=== PATIENT | female | born 2000 | race Caucasian/White ===

== ENCOUNTER 2025-06-25 20:32 | Emergency (ER) | payer MEDICAID ==
[~2025-06-25] VITALS: Ht 162.6 cm; Wt 98.0 kg
[2025-06-25 20:36] VITALS: O2SAT 99
[2025-06-25] MEDS: ONDANSETRON HCL 4MG/2ML INJ IV ONE (21:45)
[2025-06-25] MEDS: LORAZEPAM 2MG/ML UD SYRINGE IV SCH (21:45)
[2025-06-25] MEDS: ACETAMINOPHEN 500MG TABLET PO ONE (21:46)
[2025-06-25] MEDS: SODIUM CHLORIDE 0.9% 1,000 ML IV ONE (21:46)
[2025-06-25 21:47] LABS: BASOPHILS % 0.8 % (0.0-2.0); EOSINOPHILS % 0.7 % (0.0-5.0); HEMATOCRIT. 38.0 % (36.0-48.0); HEMOGLOBIN. 12.8 g/dL (12.0-16.0); LYMPHOCYTES % 29.0 % (20.0-50.0); MEAN PLATELET VOLUME 10.5 fl (7.4-10.4); MONOCYTES % 7.3 % (2.0-8.0); NEUTROPHILS % 62.2 % (40.0-76.0); PLATELET 168 x1000/uL (130-400); RED BLOOD CELL COUNT 4.17 mill/uL (4.2-5.4); RED CELL DISTRIBUTION WIDTH 12.6 % (11.6-14.6)
[2025-06-25 22:02] LABS: HCG SCREEN POSITIVE
[2025-06-25 22:05] LABS: CREATININE 0.5 mg/dL (0.6-1.0); UREA NITROGEN BLOOD < 5 mg/dL (9-23)
[2025-06-25 22:07] LABS: ASPARTATE AMINOTRANSFERASE 33 IU/L (<34); BILIRUBIN DIRECT 0.4 mg/dL (<=3.0); BILIRUBIN TOTAL 1.3 mg/dL (0.1-1.0); PROTEIN TOTAL 6.7 g/dL (6.0-8.3)
[2025-06-25] MEDS ORDERED: CHLO25CA11 MT (23:07)
[2025-06-25] MEDS ORDERED: ONDA-239 PO (23:07)
[2025-06-25 23:13] VITALS: BP 110/47; PULSE 78; RESP 22; TEMP 37.1; O2SAT 99
== END 2025-06-25 23:29 | disposition home or self-care (01) ==
LOC: ER 20:32 → CMPBEDREQ 06-26 08:11
DX: O99.311 Alcohol use complicating pregnancy, first trimester (principal); F10.239 Alcohol dependence with withdrawal, unspecified; O21.8 Other vomiting complicating pregnancy; N89.8 Other specified noninflammatory disorders of vagina; Z3A.12 12 weeks gestation of pregnancy; Y90.9 Presence of alcohol in blood, level not specified
CPT/HCPCS: 99285; 96374; 76801; 96361; 96375; 80076; 80048; 84703; 84702; 83690; 83735; 85025; 86850; 86900; 86901; 36415; 76817; J2060; J2405; J7030